=== PATIENT | male | born 1950 | race African-American/Black ===

== ENCOUNTER 2019-03-17 13:50 | Outpatient (CLI) | payer OTHER | END 2019-03-17 23:59 | disposition home or self-care (01) | LOC: CFH 13:50 | PROVIDERS: ATTEND Internal Medicine Cardiovascular Disease | DX: I35.8 Other nonrheumatic aortic valve disorders (principal); E78.5 Hyperlipidemia, unspecified; I10 Essential (primary) hypertension | CPT/HCPCS: 75571; 93306 ==

== ENCOUNTER → 2020-02-23 | Outpatient (CLI) | payer OTHER | END | disposition home or self-care (01) | LOC: CFH 07:06 | PROVIDERS: ATTEND Internal Medicine Cardiovascular Disease | DX: I25.10 Atherosclerotic heart disease of native coronary artery without angina pectoris (principal); I77.810 Thoracic aortic ectasia; I10 Essential (primary) hypertension; E78.5 Hyperlipidemia, unspecified | CPT/HCPCS: 93306; 93356 ==